=== PATIENT | male | born 1985 | race Caucasian/White ===

== ENCOUNTER 2017-04-08 20:53 | Emergency (ER) | payer BC ==
[~2017-04-08] VITALS: Ht 182.9 cm; Wt 81.0 kg
[2017-04-08 21:00] VITALS: BP 123/69; PULSE 71; TEMP 36.8; O2SAT 100; Ht 182.9 cm; Wt 81.0 kg
[2017-04-08] MEDS ORDERED: PRED10TA PO (21:14)
[2017-04-08] MEDS ORDERED: SULF800T23 PO (21:14)
[2017-04-08] MEDS ORDERED: BCTROWC EXT (21:14)
[2017-04-08] MEDS ORDERED: CEPH500C2 PO (21:14)
--- NOTE | 2017-04-08 22:34 | EMERGENCY ROOM VISIT NOTE ---
History First contact with patient: 21:15 Chief Complaint: RASH Stated Complaint: RASH/INFECTED CUT ON R LEG History of Present Illness The patient is a 31 year old male who presents to the Emergency Room with complaints of an infected cut on his right leg. The patient reports that he was fishing last Sunday, and reports sustaining a puncture wound to the leg. He also reports that he got poison bacilio on both legs as well. When the patient had persistent redness and swelling of the right leg, he was seen at the [facility] [place] on Sunday, given a shot of Rocephin, and was provided prescriptions for Bactroban cream, Keflex, Bactrim and prednisone. The patient reports that the wound appears about the same size and redness. The redness seems to extend in different directions, regressing and progressing and others. The patient admits that he has been using hydrogen peroxide to clean the wound. He reports that the center of the wound now looks like it is starting to break down and purplish in appearance. He denies any fevers or chills, or pain with weightbearing. Tetanus immunization is up-to-date. Review of Systems 10 system review was performed and was negative except for pertinent positives and negatives as indicated in history of present illness Past Medical/Surgical History Medical Problems: (1) No significant past medical history Surgical Problems: (1) No history of previous surgery Family History Unremarkable Social History Smoking Status: Never Smoker Alcohol Use: occasionally Marital Status: Housing Status: lives with family Occupation Status: employed Current/Historical Medications Scheduled Cephalexin Monohydrate (Keflex), 500 MG PO TID Mupirocin (Bactroban 2% Oint), 1 APPLN EXT DIRECTED Prednisone (Prednisone), 10 MG PO DIRECTED Sulfa/Trimethoprim (Bactrim Ds 800MG/160MG), 1 TAB PO BID Physical Exam Vital Signs Date Time Temp Pulse Resp B/P (MAP) Pulse Ox O2 Delivery O2 Flow Rate FiO2 04/08/17 21:00 36.8 71 18 123/69 100 Room Air Pain Rating (0-10): 0 Physical Exam CONSTITUTIONAL: Healthy and well nourished. Alert and oriented X 3 with positive affect. HEENT: Normocephalic, atraumatic. Pupils equal, round and reactive. NECK: Full active range of motion without discomfort. MUSCULOSKELETAL: Examination shows bilateral lower extremity erythematous lesions consistent with contact dermatitis. The patient has a large area of erythema on the right anterior leg with similar appearance. The central portion of the wound shows a circular 3 cm diameter area of ecchymosis and skin breakdown. There is no fluctuance or drainage. Pedal pulses are intact. The patient and relates without antalgic gait. INTEGUMENTARY: No rash or other significant dermatologic conditions noted. NEUROLOGIC: No focal neurologic deficits noted. Right lower extremity is sensory intact. Medical Decision & Procedures ED Course Patient history and physical exam were performed. Nurse's notes were reviewed. Vital signs were reviewed and normal. The patient was advised that the wound appears to be a contact dermatitis, with central wound breakdown likely secondary to hydrogen peroxide use. The patient was encouraged to stop hydrogen peroxide use, and keep the wound covered with an antibiotic ointment/ Bactroban cream and dressing. Our immigration case worker will send a referral request to the wound clinic, who should call him tomorrow for an appointment. The patient was instructed to call the emergency department if he does not hear from them within the next 24-48 hours. He was instructed to return to the emergency department for any developing red streaks, fever, worsening pain or other concerning symptoms. The patient was happy with plan of care, and voiced understanding of all discharge instructions. Medical Decision Medication Reconcilliation Current Medication List: was personally reviewed by me Blood Pressure Screening Patient's blood pressure: Normal blood pressure Impression Primary Impression: Contact dermatitis left leg Additional Impression: Wound of left leg Departure Information Dispostion Home / Self-Care Condition GOOD Referrals Fermin Casas, DO Forms HOME CARE DOCUMENTATION FORM, IMPORTANT VISIT INFORMATION Patient Instructions My [facility] Additional Instructions Continue with Bactroban and a dressing to avoid irritation. Do not use hydrogen peroxide on the wound. Continue with your current antibiotics and prednisone prescription. Follow-up with the [facility] (Dr. Casas) for further reevaluation and management. Their office should call you tomorrow for an appointment. If they do not call you by Sunday, call the emergency department ([phone]) for additional assistance. Problem Qualifiers Additional Impression: Wound of left leg Encounter type: initial encounter Qualified Codes: S81.802A - Unspecified open wound, left lower leg, initial encounter
[2017-04-16] MEDS ORDERED: CIPR1TAB11 PO (08:13)
[2017-04-16] MEDS ORDERED: PRED20TA PO (09:04)
== END 2017-04-08 21:52 | disposition home or self-care (01) ==
LOC: C.EDB 20:57 → C.EDD 21:52
DX: L25.9 Unspecified contact dermatitis, unspecified cause (principal); S81.801A Unspecified open wound, right lower leg, initial encounter; X58.XXXA Exposure to other specified factors, initial encounter

== ENCOUNTER 2017-04-19 11:06 | Emergency (ER) | payer BC ==
[~2017-04-19] VITALS: Ht 182.9 cm; Wt 81.0 kg
[~2017-04-19 11:06] MED LIST: CIPR1TAB11 PO; PRED20TA PO
[2017-04-19 11:11] VITALS: TEMP 36.6; Ht 182.9 cm; Wt 81.0 kg
[2017-04-19] MEDS ORDERED: DEXAMETHASONE 4 MG TAB PO ONE (12:00)
[2017-04-19] MEDS ORDERED: FAMOTIDINE 20 MG TAB PO ONE (12:00)
[2017-04-19] MEDS ORDERED: DIPH25CA65 PO (12:43)
[2017-04-19 14:06] VITALS: BP 114/64; PULSE 48; O2SAT 98
--- NOTE | 2017-04-19 17:23 | EMERGENCY ROOM VISIT NOTE ---
History Report prepared by Miracle: Ce Andres Under the Supervision of: Dr. Jefe Hong D.O. First contact with patient: 11:22 Chief Complaint: ALLERGIC REACTION Stated Complaint: HIVES - POSSIBLE DRUG INTERACTION Nursing Triage Summary: "I seem to be reacting to prednisone. I have hives all over my wrists, butt, and back." Pt verbalizes the prednisone was prescribed for poison bacilio, started april 07. History of Present Illness The patient is a 31 year old male who presents to the Emergency Room with complaints of a worsening rash that began yesterday. The patient has poison bacilio on his bilateral lower extremities. He was started on a prednisone taper on 04/07. He finished this taper, but states that his poison bacilio became infected. He has been following-up with the wound care clinic. He was placed on Keflex initially for his infection and then switched to Bactrim and Cipro. The patient finished taking the antibiotics two days ago. He was started on 60 mg of prednisone daily when he followed-up at the wound clinic two days ago. This was to help with the itchiness of his poison bacilio. The patient states that yesterday he developed a red and itchy rash on his back, buttocks, and legs. Today the rash spread to his arms. This rash is generally itchy all over. He denies any trouble breathing, eating, or swallowing. He states that the "top of my palate is really itchy which is similar to my reaction to cats." He denies any other changes to medications. He denies any new exposures, new animals, recent travel , and dietary changes. He took a Benadryl this morning for his symptoms. Source of History: patient Onset: yesterday Position: other (global) Symptom Intensity: severe Quality: other (itchy) Timing: worsening Note: He denies any trouble breathing, eating, or swallowing. Review of Systems See HPI for pertinent positives & negatives. A total of 10 systems reviewed and were otherwise negative. Past Medical & Surgical Medical Problems: (1) No significant past medical history Surgical Problems: (1) No history of previous surgery Family History No pertinent history stated. Social History Smoking Status: Never Smoker Alcohol Use: occasionally Marital Status: Housing Status: lives with family Occupation Status: employed Current/Historical Medications Scheduled Prednisone (Prednisone), 0 PO DAILY Scheduled PRN Diphenhydramine Hcl (Benadryl Allergy), 25 MG PO UD PRN for ALLERGIC REACTION Allergies Coded Allergies: No Known Allergies (Unverified , 04/08/17) Physical Exam Vital Signs Date Time Temp Pulse Resp B/P (MAP) Pulse Ox O2 Delivery O2 Flow Rate FiO2 04/19/17 14:06 48 20 114/64 98 Room Air 04/19/17 12:14 97 Room Air 04/19/17 12:09 55 20 121/67 97 Room Air 04/19/17 11:11 36.6 59 18 125/67 99 Room Air Physical Exam GENERAL: alert, sitting up in bed, well appearing, well nourished, no distress, non-toxic EYE EXAM: normal conjunctiva OROPHARYNX: no exudate, no erythema, lips, buccal mucosa, and tongue normal and mucous membranes are moist NECK: supple, no nuchal rigidity, no adenopathy, non-tender, no stridor LUNGS: Clear to auscultation. Normal chest wall mechanics HEART: no murmurs, S1 normal and S2 normal ABDOMEN: abdomen soft, non-tender, normo-active bowel sounds, no masses, no rebound or guarding. BACK: Back is symmetrical on inspection and there is no deformity, no midline tenderness, no CVA tenderness. SKIN: Two areas of erythema with scabs on the bilateral lower legs which are healing. Erythematous, blanching rash on buttocks, back, chest, and thighs, no petechia with surrounding scratch sheth. UPPER EXTREMITIES: upper extremities are grossly normal. LOWER EXTREMITIES: No pitting edema. NEURO EXAM: Normal sensorium, cranial nerves II-XII grossly intact, normal speech, no gross weakness of arms, no gross weakness of legs. Medical Decision & Procedures Medications Administered Medications (Trade) Dose Ordered Sig/Carrie Route Start Time Stop Time Status Last Admin Dose Admin Famotidine (Pepcid Tab) 40 mg NOW ONCE PO 04/19/17 12:00 04/19/17 12:02 DC 04/19/17 12:05 40 MG Dexamethasone (Decadron Tab) 10 mg NOW ONCE PO 04/19/17 12:00 04/19/17 12:02 DC 04/19/17 12:06 10 MG Diphenhydramine HCl (Benadryl Cap) 50 mg NOW ONCE PO 04/19/17 12:00 04/19/17 12:02 DC 04/19/17 12:06 50 MG ED Course ED COURSE: Vital signs were reviewed and showed bradycardic. The patients medical record was reviewed The above diagnostic studies were performed and reviewed. ED treatments and interventions as stated above. 1122: The patient was evaluated in room B8. A complete history and physical examination was performed. 1200: Benadryl 50 mg PO, Decadron 10 mg PO, Pepcid 40 mg PO 1334: Upon reevaluation, the patient is feeling better and resting comfortably. I discussed my findings with the patient and he understands and agrees with the treatment plan. Based on the patients age, coexisting illnesses, exam and lab findings the decision to treat as an outpatient was made. The patient remained stable while under my care. The patient appeared well at the time of discharge. Medical Decision Differential diagnosis: Etiologies such as allergic reaction, anaphylaxis, urticaria, Syed-Warner syndrome, toxic epidermal necrolysis, erythema multiforme, cellulitis, as well as others were entertained. Patient is a 31-year-old male who is currently being treated for pseudomonas infection of his poison bacilio. He recently was on Bactrim, Keflex and Cipro. He has been on 2 separate doses of steroids. He presents today for a new rash on his back and buttocks which is itchy. The rash does preston. No signs of petechiae. No oral involvement. This does not appeared to be a drug rash although difficult to be 100% certain. Patient has no other complaints at this time. Patient preferred not to have an IV and consequently was given oral Benadryl, famotidine and steroids/Decadron. He had improvement of the itching and rash but not resolution. I do favor this as allergic based on symptoms. He has no respiratory involvement. He was tolerating secretions. Patient was discharged follow-up with PCP. Discussed with Pt concerning signs and symptoms to watch out for. Pt was instructed to follow up with their PCP and discussed with the patient their option to return to the ED at anytime for persistent or worsening symptoms. The appropriate anticipatory guidance and out-patient management, including indications for return to the emergency department, were explained at length to the patient and understood. Medication Reconcilliation Current Medication List: was personally reviewed by me Blood Pressure Screening Patient's blood pressure: Normal blood pressure Impression Primary Impression: Allergic reaction Scribe Attestation The scribe's documentation has been prepared under my direction and personally reviewed by me in its entirety. I confirm that the note above accurately reflects all work, treatment, procedures, and medical decision making performed by me. Departure Information Dispostion Home / Self-Care Referrals No Doctor, Assigned (PCP) Forms HOME CARE DOCUMENTATION FORM, IMPORTANT VISIT INFORMATION Patient Instructions ED Drug React Allergic, My [facility] Additional Instructions Please follow up with your primary care doctor or if you are a student, [facility] with in the next 24 hours. Any worsening of your symptoms, please return to the ED immediately. This includes any fevers greater than 100.4, worsening pain, chest pain, shortness breath, persistent nausea, swelling of throat, trouble swallowing, vomiting, unable to eat or drink, or any other concerning signs or symptoms from your standpoint. You were given medications during this visit that will inhibit your ability to drive, operate machinery and work. Please do NOT drive, operate machinery, drink alcohol or work for the next 12hrs. Problem Qualifiers Primary Impression: Allergic reaction Encounter type: initial encounter Qualified Codes: T78.40XA - Allergy, unspecified, initial encounter
== END 2017-04-19 14:11 | disposition home or self-care (01) ==
LOC: C.EDB 11:07
DX: T78.40XA Allergy, unspecified, initial encounter (principal); X58.XXXA Exposure to other specified factors, initial encounter